=== PATIENT | male | born 1995 | race Caucasian/White ===

== ENCOUNTER 2022-08-20 19:31 | Emergency (ER) | payer OTHER ==
[~2022-08-20] VITALS: Ht 190.5 cm; Wt 79.4 kg
[~2022-08-20 19:31] MED LIST: BETAMETHASONE D15 G2 TP; CEPHALEXIN500 MG PO; METHYLPRED4 MG/DOSE- PO; VISTARIL25 MG PO
[2022-08-21] MEDS ORDERED: PEPCID40 MG PO (02:07)
[2022-08-21] MEDS ORDERED: ONDANSETRON ODT4 MG PO (02:07)
== END 2022-08-21 02:14 ==
LOC: ER 19:31
DX: K29.70 Gastritis, unspecified, without bleeding (principal); R11.10 Vomiting, unspecified

== ENCOUNTER 2022-08-22 13:01 | Emergency (ER) | payer OTHER ==
[~2022-08-22] VITALS: Ht 190.5 cm; Wt 83.9 kg
[~2022-08-22 13:01] MED LIST changes: +ONDANSETRON ODT4 MG PO; +PEPCID40 MG PO
== END 2022-08-22 22:58 | disposition home or self-care (01) ==
LOC: ER 13:01
DX: R10.84 Generalized abdominal pain (principal); E86.0 Dehydration; Z20.822 Contact with and (suspected) exposure to COVID-19
CPT/HCPCS: 36415; 74177; Q9965